=== PATIENT | female | born 1950 | race Caucasian/White ===

== ENCOUNTER 2019-01-28 10:02 | Emergency (ER) | payer BC, OTHER ==
[2019-01-28 10:11] VITALS: BP 164/78; PULSE 69; TEMP 98.5; BMI 28.3
[2019-01-28] MEDS ORDERED: DIPHTH,PERTUSS(ACELL),TET 0.5 ML DISP.SYRIN IM ONE ×2 (10:50→11:23)
[2019-01-28] MEDS ORDERED: SODIUM CHLORIDE 1,000 ML IV STA (10:50)
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
== END 2019-01-28 12:01 | disposition short-term general hospital (02) ==
LOC: JER 10:02
PROC: 2W23X4Z Dressing of Abdominal Wall using Bandage (ICD-10-PCS; principal; 2019-01-28)
PROC: 2W2MX4Z Dressing of Left Lower Extremity using Bandage (ICD-10-PCS; 2019-01-28)
PROC: 2W24X4Z Dressing of Chest Wall using Bandage (ICD-10-PCS; 2019-01-28)
DX: T24.312A Burn of third degree of left thigh, initial encounter (principal); T21.32XA Burn of third degree of abdominal wall, initial encounter; T21.31XA Burn of third degree of chest wall, initial encounter; T31.0 Burns involving less than 10% of body surface; T79.8XXA Other early complications of trauma, initial encounter; X10.0XXA Contact with hot drinks, initial encounter; Y93.89 Activity, other specified; Y92.018 Other place in single-family (private) house as the place of occurrence of the external cause; Y99.8 Other external cause status
CPT/HCPCS: 16025; 90715; 99281-25